=== PATIENT | female | born 1955 | race African-American/Black ===

== ENCOUNTER 2019-12-06 20:44 | Emergency (ER) | payer OTHER ==
[~2019-12-06] VITALS: Ht 175.3 cm; Wt 76.2 kg
--- NOTE | 2019-12-06 21:00 | NUR ---
PT AAOX4. C/O RT FOOT PAIN X TODAY [place] PT PLACED IN BED 4 ON MONITOR AND PULSE OX. VSS. AWAITING MD FOR EVAL AND ORDERS.
--- NOTE | 2019-12-06 21:18 | NUR ---
RADIOLOGY AT BEDSIDE
--- NOTE | 2019-12-06 21:58 | NUR ---
EMT AT BEDSIDE FOR POS SHORT LEG AND CRUTCHES
--- NOTE | 2019-12-06 22:19 | NUR ---
Patient discharged to home in stable condition. Written and verbal after care instructions given. Patient verbalizes understanding of instruction and rx. Pt ambulated using crutches ,vss.
[2019-12-06 22:20] VITALS: BP 147/86
== END 2019-12-06 22:21 | disposition home or self-care (01) ==
LOC: ER 20:45
DX: S92.514A Nondisplaced fracture of proximal phalanx of right lesser toe(s), initial encounter for closed fracture (principal); I10 Essential (primary) hypertension; E11.9 Type 2 diabetes mellitus without complications; W23.0XXA Caught, crushed, jammed, or pinched between moving objects, initial encounter; Y93.89 Activity, other specified; Y92.89 Other specified places as the place of occurrence of the external cause; Y99.8 Other external cause status
CPT/HCPCS: 73630-TC

== ENCOUNTER 2019-12-07 18:24 | Emergency (ER) | payer OTHER ==
[~2019-12-07] VITALS: Ht 175.3 cm; Wt 76.2 kg
[2019-12-07 18:33] VITALS: BP 167/99
== END 2019-12-07 18:39 | disposition home or self-care (01) ==
LOC: ER 18:26
DX: S92.591D Other fracture of right lesser toe(s), subsequent encounter for fracture with routine healing (principal); I10 Essential (primary) hypertension; E11.9 Type 2 diabetes mellitus without complications; X58.XXXD Exposure to other specified factors, subsequent encounter

== ENCOUNTER 2020-02-06 19:12 | Emergency (ER) | payer OTHER ==
[~2020-02-06] VITALS: Ht 175.3 cm; Wt 77.6 kg
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
[2020-02-06] MEDS ORDERED: ACETAMINOPHEN 325 MG TABLET ONE (19:44)
[2020-02-06] MEDS ORDERED: ONDANSETRON 4 MG TAB.RAPDIS ONE (19:44)
[2020-02-06] MEDS ORDERED: ACETAMINOPHEN 325 MG TABLET PO ONE (20:00)
[2020-02-06] MEDS ORDERED: ONDANSETRON 4 MG TAB.RAPDIS SL ONE (20:00)
[2020-02-06 20:34] VITALS: BP 161/98
--- NOTE | 2020-02-06 20:34 | NUR ---
Patient discharged to home in stable condition. Written and verbal after care instructions given. Patient verbalizes understanding of instruction and RX. Pt ambulated with steady gait. vss.
== END 2020-02-06 20:35 | disposition home or self-care (01) ==
LOC: ER 19:12
DX: S29.011A Strain of muscle and tendon of front wall of thorax, initial encounter (principal); S09.8XXA Other specified injuries of head, initial encounter; S19.89XA Other specified injuries of other specified part of neck, initial encounter; K52.9 Noninfective gastroenteritis and colitis, unspecified; I10 Essential (primary) hypertension; E11.9 Type 2 diabetes mellitus without complications; W01.0XXA Fall on same level from slipping, tripping and stumbling without subsequent striking against object, initial encounter; Y93.89 Activity, other specified; Y92.89 Other specified places as the place of occurrence of the external cause; Y99.8 Other external cause status
CPT/HCPCS: 70450; 71100; 72125; 99285; Q0162

== ENCOUNTER 2020-04-04 11:55 | Emergency (ER) | payer OTHER ==
[~2020-04-04] VITALS: Ht 175.3 cm; Wt 76.2 kg
[2020-04-04 12:14] VITALS: BP 169/93
[2020-04-04 13:53] LABS: BASOPHILS # (AUTO) 0.1 /CMM (0.0-0.2); BASOPHILS % (AUTO) 1.1 % (0.0-2.0); EOSINOPHILS % (AUTO) 1.3 % (0.0-6.0); HEMATOCRIT 40 % (33-45); HEMOGLOBIN 13.5 g/dL (11.5-14.8); LYMPHOCYTES # (AUTO) 1.9 /CMM (0.8-4.8); LYMPHOCYTES % (AUTO) 31.7 % (20.0-44.0); MEAN CORPUSCULAR HGB CONC 34 g/dl (31.0-36.0); MEAN CORPUSCULAR VOLUME 87 fL (82-100); MONOCYTES # (AUTO) 0.4 /CMM (0.1-1.30); MONOCYTES % (AUTO) 6.7 % (2.0-12.0); NEUTROPHILS # (AUTO) 3.5 /CMM (1.8-8.9); NEUTROPHILS % (AUTO) 59.2 % (43.0-81.0); PLATELET COUNT (AUTO) 265 /CMM (150-450); RED BLOOD CELL COUNT(AUTO) 4.63 MIL/uL (4.0-5.2); WHITE BLOOD COUNT (AUTO) 5.9 K/uL (4.3-11.0)
[2020-04-04 14:06] LABS: CALCIUM, SERUM 9.4 mg/dL (8.5-10.1); CREATININE 1.3 mg/dL (0.6-1.3); POTASSIUM 3.4 mmol/L (3.5-5.1)
[2020-04-04 14:32] LABS: BILIRUBIN,URINE Negative (NEGATIVE); COLOR,URINE YELLOW (YELLOW); LEUKOCYTE ESTERASE ,URINE Negative (NEGATIVE); NITRITE, URINE Negative (NEGATIVE); PROTEIN,URINE Negative (NEGATIVE); UGLUCOSE 500 MG/DL mg/dL (NEGATIVE); UROBILINOGEN,URINE 0.2 EU/dL (0.2)
[2020-04-04] MEDS ORDERED: INSULIN REGULAR, HUMAN 100 UNIT/ML 10 ML VIAL ONE (14:54)
[2020-04-04] MEDS: INSULIN REGULAR, HUMAN 100 UNIT/ML 10 ML VIAL SQ ONE (15:01)
[2020-04-04] MEDS: BLOOD SUGAR DIAGNOSTIC 1 EACH STRIP IN ONE (15:34)
== END 2020-04-04 15:52 | disposition home or self-care (01) ==
LOC: ER 11:58
DX: M25.552 Pain in left hip (principal); E11.65 Type 2 diabetes mellitus with hyperglycemia; R60.0 Localized edema; I10 Essential (primary) hypertension; V49.69XA Unspecified car occupant injured in collision with other motor vehicles in traffic accident, initial encounter; Y93.89 Activity, other specified; Y92.413 State road as the place of occurrence of the external cause; Y99.8 Other external cause status
CPT/HCPCS: 36415; 73503; 80048; 81003; 82962; 85025; 96372; 99284; J1815; 73502

== ENCOUNTER 2020-07-24 13:53 | Emergency (ER) | payer OTHER ==
[~2020-07-24] VITALS: Ht 175.3 cm; Wt 78.0 kg
--- NOTE | 2020-07-24 14:05 | NUR ---
Patient bibs to the ER and c/o vaginal bleeding, cramping. polyuria, unable to hold urine x 2 days. denies nausea, and vomiting at this time. will monitoring.
[2020-07-24 14:25] LABS: BASOPHILS # (AUTO) 0.1 /CMM (0.0-0.2); BASOPHILS % (AUTO) 0.7 % (0.0-2.0); EOSINOPHILS % (AUTO) 1.8 % (0.0-6.0); HEMATOCRIT 41 % (33-45); HEMOGLOBIN 13.5 g/dL (11.5-14.8); LYMPHOCYTES # (AUTO) 1.7 /CMM (0.8-4.8); LYMPHOCYTES % (AUTO) 21.6 % (20.0-44.0); MEAN CORPUSCULAR HGB CONC 33 g/dl (31.0-36.0); MEAN CORPUSCULAR VOLUME 88 fL (82-100); MONOCYTES # (AUTO) 0.5 /CMM (0.1-1.30); MONOCYTES % (AUTO) 6.3 % (2.0-12.0); NEUTROPHILS # (AUTO) 5.6 /CMM (1.8-8.9); NEUTROPHILS % (AUTO) 69.6 % (43.0-81.0); PLATELET COUNT (AUTO) 228 /CMM (150-450); RED BLOOD CELL COUNT(AUTO) 4.64 MIL/uL (4.0-5.2)
[2020-07-24 14:32] LABS: CALCIUM, SERUM 8.4 mg/dL (8.5-10.1); CREATININE 1.1 mg/dL (0.6-1.3); POTASSIUM 3.6 mmol/L (3.5-5.1)
--- NOTE | 2020-07-24 15:40 | NUR ---
UA CLEAN CATCH SPECIMAN COLLECTED, SEND TO THE LAB.
[2020-07-24 16:07] LABS: BILIRUBIN,URINE NEGATIVE (NEGATIVE); COLOR,URINE YELLOW (YELLOW); LEUKOCYTE ESTERASE ,URINE NEGATIVE (NEGATIVE); NITRITE, URINE NEGATIVE (NEGATIVE); PROTEIN,URINE TRACE mg/dl (NEGATIVE); UGLUCOSE 100 MG/DL mg/dL (NEGATIVE); UROBILINOGEN,URINE 0.2 EU/dL (0.2)
[2020-07-24 16:15] LABS: BACTERIA,URINE 1+ /HPF (None Seen); RBC,URINE TOO NUMEROUS TO COUN /HPF (0-2); SQUAMOUS EPITHELIAL CELL,UR Few /HPF (None Seen); WBC,URINE 0-2 /HPF (0-3)
[2020-07-24 16:45] VITALS: BP 132/84
--- NOTE | 2020-07-24 16:52 | NUR ---
Patient discharged to home in stable condition. Written and verbal after care instructions given. Patient verbalizes understanding of instruction. patient refused pain, will follow up with pcp.
== END 2020-07-24 16:54 | disposition home or self-care (01) ==
LOC: ER 13:53
DX: N95.0 Postmenopausal bleeding (principal); D25.9 Leiomyoma of uterus, unspecified; I10 Essential (primary) hypertension; E11.9 Type 2 diabetes mellitus without complications
CPT/HCPCS: 36415; 76856-TC; 80048-TC; 81001; 84703-TC; 85025-TC; 85730-TC

== ENCOUNTER 2020-11-27 14:50 | Emergency (ER) | payer OTHER ==
[~2020-11-27] VITALS: Ht 175.3 cm; Wt 77.1 kg
[2020-11-27 16:40] VITALS: BP 156/79
[2020-11-27] MEDS ORDERED: AMOX500T2 PO (16:50)
[2020-11-27] MEDS ORDERED: ACET-2605 PO (16:50)
[2020-11-27] MEDS ORDERED: NEOM10DR46 OT (17:00)
== END 2020-11-27 17:07 | disposition home or self-care (01) ==
LOC: ER 14:51
DX: H66.91 Otitis media, unspecified, right ear (principal); H60.91 Unspecified otitis externa, right ear; I10 Essential (primary) hypertension; E11.9 Type 2 diabetes mellitus without complications; Z79.899 Other long term (current) drug therapy

== ENCOUNTER 2021-04-21 06:15 | Emergency (ER) | payer OTHER ==
[~2021-04-21] VITALS: Ht 175.3 cm; Wt 77.1 kg
[~2021-04-21 06:15] MED LIST: ACET-2605 PO; AMOX500T2 PO; NEOM10DR46 OT
--- NOTE | 2021-04-21 06:29 | NUR ---
BIBSELF FROM HOME C/O RIGHT EAR PAIN AND URINATION PROBLEMS "FOR A COUPLE WEEKS" PT A/OX4. TOLERATING R/A WELL WITH NO SOB AT 99%
--- NOTE | 2021-04-21 06:31 | NUR ---
SARA RAMIREZ AT PT'S BEDSIDE
[2021-04-21] MEDS ORDERED: IBUP-1955 PO (06:35)
--- NOTE | 2021-04-21 06:42 | NUR ---
Patient discharged to home in stable condition. Written and verbal after care instructions given. Patient verbalizes understanding of instruction. PT ambulatory with a steady gait
[2021-04-21 06:43] VITALS: BP 141/74
== END 2021-04-21 06:43 | disposition home or self-care (01) ==
LOC: ER 06:20
DX: L91.0 Hypertrophic scar (principal); N32.81 Overactive bladder; I10 Essential (primary) hypertension; E11.9 Type 2 diabetes mellitus without complications

== ENCOUNTER 2021-07-31 14:25 | Emergency (ER) | payer OTHER ==
[~2021-07-31] VITALS: Ht 165.1 cm; Wt 79.4 kg
[~2021-07-31 14:25] MED LIST changes: +AMLO-212 PO; +ASPI-1169 PO; +ATEN100T PO; +ATEN50TA PO; +GLIM4TAB37 PO; +HYDR-4077 PO; +HYDR25TA4 PO; +IBUP-1955 PO; +INSU100I26 SQ; +INSU100V42 SQ; +ISOS20TA8 PO; +QUET25TA PO; +Quetiapine Fumarate PO
[2021-07-31 14:37] VITALS: BP 138/69
[2021-07-31] MEDS ORDERED: CEPH250C PO (15:07)
[2021-07-31] MEDS ORDERED: CIPR500T5 PO (15:07)
--- NOTE | 2021-07-31 15:26 | NUR ---
Patient discharged to home in stable condition. Written and verbal after care instructions given. Patient verbalizes understanding of instruction.
== END 2021-07-31 15:26 | disposition home or self-care (01) ==
LOC: ER 14:31
DX: H60.12 Cellulitis of left external ear (principal); I10 Essential (primary) hypertension; E11.9 Type 2 diabetes mellitus without complications; Z79.899 Other long term (current) drug therapy